=== PATIENT | female | born 1945 | race Two or more races ===

== ENCOUNTER 2020-06-18 19:04 | Emergency (ER) | payer OTHER ==
[~2020-06-18] VITALS: Ht 157.5 cm; Wt 59.0 kg
[2020-06-18] MEDS ORDERED: LEVOTHYROXINE25 MCG (19:13)
[2020-06-18] MEDS ORDERED: LONSURF 15 MG-1 EACH (19:14)
[2020-06-18] MEDS ORDERED: SIMVASTATIN5 MG (19:15)
== END 2020-06-19 11:59 | disposition home or self-care (01) ==
LOC: ER 19:04
DX: N39.0 Urinary tract infection, site not specified (principal); E87.6 Hypokalemia; E03.8 Other specified hypothyroidism; G20 Parkinson's disease; Z03.818 Encounter for observation for suspected exposure to other biological agents ruled out